=== PATIENT | male | born 1965 | race American Indian/Alaskan Native ===

== ENCOUNTER 2017-01-28 06:18 | Emergency (ER) | payer SELFPAY ==
[2017-01-28 06:28] VITALS: BP 175/105
--- NOTE | 2017-01-28 08:21 | Emergency Department Report ---
ED ENT HPI - General Chief complaint: Dental/Oral Stated complaint: TOOTHACHE/RT SIDE FACIAL SWELLING Source: patient Mode of arrival: Ambulatory Limitations: No Limitations - History of Present Illness Initial comments: 51 y/o male complain toothache x 1 month increasing worsen . Onset/Timin -: week(s) Location: tooth # Severity: severe Severity scale (0 -10): 10 Quality: aching Consistency: constant Improves with: none Worsens with: none Context- Dental: poor dental care Associated Symptoms: gum swelling, toothache - Related Data Allergies Allergy/AdvReac Type Severity Reaction Status Date / Time No Known Allergies Allergy Verified 01/28/17 06:24 ED Dental HPI - General Chief complaint: Dental/Oral Stated complaint: TOOTHACHE/RT SIDE FACIAL SWELLING Source: patient Mode of arrival: Ambulatory Limitations: No Limitations - Related Data Allergies Allergy/AdvReac Type Severity Reaction Status Date / Time No Known Allergies Allergy Verified 01/28/17 06:24 ED Review of Systems ROS: Stated complaint: TOOTHACHE/RT SIDE FACIAL SWELLING Other details as noted in HPI Constitutional: denies: chills, fever Eyes: denies: eye pain, eye discharge, vision change ENT: dental pain. denies: ear pain, throat pain Respiratory: denies: cough, shortness of breath, wheezing Cardiovascular: denies: chest pain, palpitations Endocrine: no symptoms reported Gastrointestinal: denies: abdominal pain, nausea, diarrhea Genitourinary: denies: urgency, dysuria Musculoskeletal: denies: back pain, joint swelling, arthralgia Skin: denies: rash, lesions Neurological: denies: headache, weakness, paresthesias Psychiatric: denies: anxiety, depression Hematological/Lymphatic: denies: easy bleeding, easy bruising ED Past Medical Hx - Past Medical History Previous Medical History?: Yes Hx Asthma: Yes - Surgical History Past Surgical History?: Yes Additional Surgical History: Jaw Fx, Hernia - Social History Smoking Status: Current Every Day Smoker Substance Use Type: Alcohol ED Physical Exam - General Limitations: No Limitations General appearance: alert, in no apparent distress - Head Head exam: Present: atraumatic, normocephalic - Eye Eye exam: Present: normal appearance - ENT ENT exam: Present: mucous membranes moist - Expanded ENT Exam Expanded Mouth exam: Absent: drooling, trismus Teeth exam: Present: dental caries, fractured tooth # Throat exam: Positive: normal inspection - Neck Neck exam: Present: normal inspection - Respiratory Respiratory exam: Present: normal lung sounds bilaterally. Absent: respiratory distress - Cardiovascular Cardiovascular Exam: Present: regular rate, normal rhythm. Absent: systolic murmur, diastolic murmur, rubs, gallop - GI/Abdominal GI/Abdominal exam: Present: soft, normal bowel sounds - Rectal Rectal exam: Present: deferred - Extremities Exam Extremities exam: Present: normal inspection - Back Exam Back exam: Present: normal inspection - Neurological Exam Neurological exam: Present: alert, oriented X3 - Psychiatric Psychiatric exam: Present: normal affect, normal mood - Skin Skin exam: Present: warm, dry, intact, normal color. Absent: rash ED Course Vital Signs 01/28/17 06:24 Temperature 98.1 F Pulse Rate 77 Respiratory 20 Rate Blood Pressure 175/105 O2 Sat by Pulse 98 Oximetry ED Medical Decision Making - Medical Decision Making Multi dental caries and fracture tooth to upper and lower molar HTn -pt state he do not have HTN and that his blood pressure is up and down. States that he has an appointment to go to [place] in [place]. States that he is not here today to be evaluated for his hypertension. Patient states that he just want medication for dental issue Critical care attestation.: If time is entered above; I have spent that time in minutes in the direct care of this critically ill patient, excluding procedure time. ED Disposition Clinical Impression: Dental abscess Disposition: DC-01 TO HOME OR SELFCARE Is pt being admited?: No Does the pt Need Aspirin: No Condition: Stable Instructions: Dental Abscess (ED) Referrals: PRIMARY CARE, [Primary Care Provider] - 3-5 Days [facility] [Outside] - 3-5 Days Time of Disposition: 08:33
[2017-01-28] MEDS ORDERED: NORCO 10/325 PO ONE (08:22)
== END 2017-01-28 08:53 | disposition home or self-care (01) ==
LOC: ED 06:18
DX: K04.7 Periapical abscess without sinus (principal); J45.909 Unspecified asthma, uncomplicated; F17.200 Nicotine dependence, unspecified, uncomplicated
CPT/HCPCS: 99281

== ENCOUNTER 2018-11-25 19:12 | Emergency (ER) | payer SELFPAY ==
[2018-11-25 19:17] VITALS: BP 145/75
== END 2018-11-25 20:00 | disposition left against medical advice (07) ==
LOC: ED 19:12
DX: K08.89 Other specified disorders of teeth and supporting structures (principal); Z53.21 Procedure and treatment not carried out due to patient leaving prior to being seen by health care provider

== ENCOUNTER 2020-06-26 14:21 | Emergency (ER) | payer SELFPAY ==
[2020-06-26 16:26] VITALS: BP 127/64
--- NOTE | 2020-06-26 16:31 | Event Note ---
ED Screening Note Date of service: 06/26/20 Time: 16:31 ED Screening Note: Complains of shortness of breath since being diagnosed with Covid 2 weeks ago Worsening over the past few days History of COPD and asthma This initial assessment/diagnostic orders/clinical plan/treatment(s) is/are subject to change based on patients health status, clinical progression and re- assessment by fellow clinical providers in the ED. Further treatment and workup at subsequent clinical providers discretion. Patient/guardian urged not to elope from the ED as their condition may be serious if not clinically assessed and managed. Initial orders include: Labs Tylenol Chest x-ray
[2020-06-26] MEDS ORDERED: ACETAMINOPHEN 325 MG TAB PO ONE (16:32)
--- NOTE | 2020-06-26 18:21 | XRay Report ---
CHEST 2 VIEWS INDICATION / CLINICAL INFORMATION: SOB, +COVID. COMPARISON: 05/23/18. FINDINGS: SUPPORT DEVICES: None. HEART / MEDIASTINUM: The heart size and pulmonary vasculature are normal. LUNGS / PLEURA: The lungs are hyperinflated with bullous changes in both mid to upper lung zones, rig ht greater than left. There is mild bibasilar subsegmental atelectasis, new since the prior exam. No pneumothorax. ADDITIONAL FINDINGS: No significant additional findings. IMPRESSION: Bullous emphysema with mild bibasilar subsegmental atelectasis. Signer Name: Grady Bedoya MD Signed: 06/26/2020 6:16 PM Workstation Name: [id number]
== END 2020-06-27 07:00 ==
LOC: ED 14:21
DX: R43.8 Other disturbances of smell and taste (principal); Z53.21 Procedure and treatment not carried out due to patient leaving prior to being seen by health care provider
CPT/HCPCS: 71046